=== PATIENT | female | born 1990 | race Caucasian/White ===

== ENCOUNTER 2023-03-21 16:50 | Emergency (ER) | payer OTHER, SELFPAY ==
[2023-03-21] VITALS (15 sets, daily range): BP systolic 99–121; BP diastolic 60–80; PULSE 66–89; RESP 10–24; TEMP 37.5; O2SAT 96–100; BMI 30.6
--- NOTE | 2023-03-21 17:05 | ED.CHESTPAI1 ---
Documented by User: Kassi Benavides MD 03/23/23 18:56 HPI - Chest Pain General Chief Complaint: Chest Pain Stated Complaint: CHEST PAIN Time Seen by Provider: 03/21/23 17:05 Source: patient Mode of arrival: walk-in History of Present Illness HPI narrative: Patient says emergency department complaining of chest pain. Patient states she's had intermittent chest pain since 1 PM. She says she is under a lot of stress as she was served papers by her ex- to take full custody of her kids. Patient denies any shortness of breath. She states she's had panic attacks in the past and this feels kind of like it. She also states she has a history of acid reflex and she took Pepto-Bismol to see if it would help. Patient denies any fever, chills, or cough. She denies any shortness of breath. She denies any lower extremity edema. She denies any history of heart disease or thrombotic embolic disease. She denies any trauma. She denies any cough or upper respiratory infection symptoms. She denies any sore throat or difficulty swallowing. Related Data Home Medications Medication Instructions Recorded Confirmed pantoprazole 40 mg tablet,delayed 40 mg PO DAILY 03/21/23 03/21/23 release zonisamide 25 mg capsule 25 mg PO DAILY 03/21/23 03/21/23 Previous Rx's Medication Instructions Recorded famotidine 20 mg tablet (Pepcid) 20 mg PO Q12H #10 tabs 03/21/23 Allergies Allergy/AdvReac Type Severity Reaction Status Date / Time amoxicillin Allergy Severe Verified 03/21/23 16:58 Penicillins Allergy Severe Verified 03/21/23 16:58 Review of Systems ROS Status of ROS 10 or more systems reviewed and unremarkable except as noted in history and below Exam Narrative Exam Narrative: Nurses notes and vital signs reviewed and patient is not hypoxic. General: Nontoxic, Well-appearing and in no apparent distress. Skin: Warm, dry, no pallor noted. No Rash Head: Normocephalic, atraumatic. Neck: Supple, non-tender. Eye: Pupils are equal, round and EOMI. No scleral icterus. Ears, Nose, Mouth, and Throat: TM clear, no posterior oropharynx erythema or nasal mucosal hypertrophy, uvula is mid-line Oral mucosa is moist Cardiovascular: Regular Rate and Rhythm without murmur, gallop or rub. Respiratory: No accessory muscle use or respiratory distress. Lungs are clear to auscultation, no wheezing, rales or rhonchi Chest Wall: no tenderness Back: No midline thoracic or lumbar vertebral tenderness. No CVA tenderness Musculoskeletal: normal ROM, no calf or popliteal tenderness, no lower extremity edema/swelling GI: Abdomen is soft, non-distended. Normal bowel sounds. No masses appreciated. No tenderness to palpation. No rebound, guarding, or rigidity noted. Neurological: A&O x4. No cranial nerve dysfunction observed. No truncal ataxia. Moves all extremities. Sensation intact. Psychiatric: Cooperative and interactive. anxious Constitutional Vital Signs - 24 hr 03/21/23 16:58 03/21/23 17:00 03/21/23 17:01 Temperature 99.5 F Pulse Rate 89 79 Pulse Rate [Monitor] 87 Respiratory Rate 16 18 22 Blood Pressure 111/72 Blood Pressure [Left Arm] 111/72 Pulse Oximetry 100 99 Oxygen Delivery Method Room Air 03/21/23 17:02 03/21/23 17:02 03/21/23 17:30 Temperature Pulse Rate 83 80 87 Pulse Rate [Monitor] Respiratory Rate 21 20 24 Blood Pressure 111/69 111/69 106/74 Blood Pressure [Left Arm] Pulse Oximetry 98 96 97 Oxygen Delivery Method 03/21/23 18:00 03/21/23 18:00 03/21/23 18:30 Temperature Pulse Rate 80 71 66 Pulse Rate [Monitor] Respiratory Rate 15 13 19 Blood Pressure 120/78 H 120/78 H 121/80 H Blood Pressure [Left Arm] Pulse Oximetry 97 97 97 Oxygen Delivery Method 03/21/23 19:00 03/21/23 19:40 03/21/23 19:50 Temperature Pulse Rate 74 83 Pulse Rate [Monitor] Respiratory Rate 10 L 22 Blood Pressure 99/60 Blood Pressure [Left Arm] Pulse Oximetry 96 Oxygen Delivery Method 03/21/23 19:59 03/21/23 20:00 03/21/23 20:30 Temperature Pulse Rate 74 80 80 Pulse Rate [Monitor] Respiratory Rate 15 17 14 Blood Pressure 119/80 H 108/74 Blood Pressure [Left Arm] Pulse Oximetry 98 96 98 Oxygen Delivery Method 03/21/23 21:00 03/21/23 21:02 03/21/23 21:41 Temperature Pulse Rate 76 Pulse Rate [Monitor] Respiratory Rate 15 Blood Pressure 115/78 116/79 Blood Pressure [Left Arm] Pulse Oximetry 98 Oxygen Delivery Method Room Air Course Vital Signs Vital signs: Vital Signs Temperature 99.5 F 03/21/23 16:58 Pulse Rate 87 03/21/23 16:58 Respiratory Rate 16 03/21/23 16:58 Blood Pressure 111/72 03/21/23 16:58 Pulse Oximetry 100 03/21/23 16:58 Oxygen Delivery Method Room Air 03/21/23 16:58 Temperature 99.5 F 03/21/23 16:58 Pulse Rate 76 03/21/23 21:00 Respiratory Rate 15 03/21/23 21:00 Blood Pressure 116/79 03/21/23 21:02 Pulse Oximetry 98 03/21/23 21:00 Oxygen Delivery Method Room Air 03/21/23 21:41 MDM - Chest Pain MDM Narrative Medical decision making narrative: Labs and x-rays were ordered. Patient was given Atarax. Patient is hemodynamically stable. Patient's symptoms improved. Will be given a prescription for Atarax. Patient is nontoxic, stable for outpatient follow-up and treatment.At this time the patient is without objective evidence of an acute process requiring hospitalization or inpatient management. The patient has remained hemodynamically stable. No additional indication for emergent studies at this time. I answered all questions. Discussed discharge instructions including standard anticipatory guidance and what should prompt a return to the emergency department, including if they get worse are not getting better or develops any new or concerning symptoms. I've given them specific time frame in which to follow-up, and who to follow-up with. The patient demonstrates understanding. Patient is nontoxic and stable for discharge with outpatient follow-up. This note was created with the assistance of a speech recognition program. Although the intention is to generate documents that actually reflects the content of the visit, no guarantees can be provided that every mistake has been identified and corrected by editing. Differential Diagnosis Differential diagnosis: Likely pneumothorax, stable angina, unstable angina pectoris, atypical chest pain, st elevation myocardial infarction, costochondritis and chest pain Lab Data Attestation: I reviewed the patient's lab results. Labs: Lab Results 03/21/23 03/21/23 Range/Units 17:50 19:28 WBC 8.3 (4.0-11.0) 10^3/uL RBC 5.01 (4.20-5.40) 10^6/uL Hgb 14.3 (12.0-16.0) g/dL Hct 41.7 (36.0-48.0) % MCV 83.2 (81.0-99.0) fL MCH 28.5 (26.7-34.0) pg MCHC 34.3 (29.9-35.2) g/dL RDW 12.5 (11.0-15.0) % Plt Count 236 (150-450) 10^3/uL MPV 11.0 (9.5-13.5) fL Neut % (Auto) 84.0 H (43.0-75.0) % Lymph % (Auto) 7.8 L (20.5-60.0) % [place] % (Auto) 6.2 (1.7-12.0) % Eos % (Auto) 1.0 (0.9-7.0) % Baso % (Auto) 0.4 (0.2-2.0) % Neut # (Auto) 7.0 H (1.4-6.5) 10^3/uL Lymph # (Auto) 0.7 L (1.2-3.8) 10^3/uL [place] # (Auto) 0.5 (0.3-0.8) 10^3/uL Eos # (Auto) 0.1 (0.0-0.7) 10^3/uL Baso # (Auto) 0.0 (0.0-0.1) 10^3/uL Abs Immat Gran (auto) 0.05 H (0.00-0.03) 10^3/uL Imm/Tot Granulo (auto) 0.6 H (0.0-0.5) % D-Dimer 1.83 H* (<=0.59) mg/L FEU Sodium 135 L (136-145) mmol/L Potassium 3.5 (3.5-5.1) mmol/L Chloride 103 (98-107) mmol/L Carbon Dioxide 23.4 (21.0-32.0) mmol/L Anion Gap 12.1 BUN 10.0 (7.0-18.0) mg/dL Creatinine 0.83 (0.55-1.02) mg/dL Est GFR ( Amer) >60 (>=60) Est GFR (Non-Af Amer) >60 (>=60) BUN/Creatinine Ratio 12.0 Glucose 111 H (74-106) mg/dL Calcium 8.4 L (8.5-10.1) mg/dL Total Bilirubin 0.8 (0.2-1.0) mg/dL AST 159 H (15-37) U/L ALT 97 H (14-59) U/L Alkaline Phosphatase 124 H (46-116) U/L Troponin I High Sens <4.0 L <4.0 L (4.0-51.3) pg/mL Total Protein 7.3 (6.4-8.2) g/dL Albumin 3.1 L (3.4-5.0) g/dL Globulin 4.2 g/dL Albumin/Globulin Ratio 0.7 ECG Data Attestation: I personally reviewed and interpreted this ECG as follows: Discharge Plan Discharge Chief Complaint: Chest Pain Clinical Impression: Chest pain, Atypical chest pain Patient Disposition: Home, Self-Care Time of Disposition Decision: 18:03 Condition: Good Mode of Transportation: Private Vehicle Prescriptions / Home Meds: New famotidine [Pepcid] 20 mg tablet 20 mg PO Q12H Qty: 10 0RF No Action pantoprazole 40 mg tablet,delayed release (DR/EC) 40 mg PO DAILY zonisamide 25 mg capsule 25 mg PO DAILY Instructions: Chest Pain (ED) Stand Alone Forms: Portal Instructions Referrals: Bret Smith MD [Primary Care Provider] - 1 week Discharge Date/Time: 03/21/23 21:48 Documented by User: Sharifa Bradford MD 03/22/23 04:48 HPI - Chest Pain General Chief Complaint: Chest Pain Stated Complaint: CHEST PAIN Time Seen by Provider: 03/21/23 17:05 Related Data Home Medications Medication Instructions Recorded Confirmed pantoprazole 40 mg tablet,delayed 40 mg PO DAILY 03/21/23 03/21/23 release zonisamide 25 mg capsule 25 mg PO DAILY 03/21/23 03/21/23 Previous Rx's Medication Instructions Recorded famotidine 20 mg tablet (Pepcid) 20 mg PO Q12H #10 tabs 03/21/23 Allergies Allergy/AdvReac Type Severity Reaction Status Date / Time amoxicillin Allergy Severe Verified 03/21/23 16:58 Penicillins Allergy Severe Verified 03/21/23 16:58 Exam Constitutional Vital Signs - 24 hr 03/21/23 16:58 03/21/23 17:00 03/21/23 17:01 Temperature 99.5 F Pulse Rate 89 79 Pulse Rate [Monitor] 87 Respiratory Rate 16 18 22 Blood Pressure 111/72 Blood Pressure [Left Arm] 111/72 Pulse Oximetry 100 99 Oxygen Delivery Method Room Air 03/21/23 17:02 03/21/23 17:02 03/21/23 17:30 Temperature Pulse Rate 83 80 87 Pulse Rate [Monitor] Respiratory Rate 21 20 24 Blood Pressure 111/69 111/69 106/74 Blood Pressure [Left Arm] Pulse Oximetry 98 96 97 Oxygen Delivery Method 03/21/23 18:00 03/21/23 18:00 03/21/23 18:30 Temperature Pulse Rate 80 71 66 Pulse Rate [Monitor] Respiratory Rate 15 13 19 Blood Pressure 120/78 H 120/78 H 121/80 H Blood Pressure [Left Arm] Pulse Oximetry 97 97 97 Oxygen Delivery Method 03/21/23 19:00 03/21/23 19:40 03/21/23 19:50 Temperature Pulse Rate 74 83 Pulse Rate [Monitor] Respiratory Rate 10 L 22 Blood Pressure 99/60 Blood Pressure [Left Arm] Pulse Oximetry 96 Oxygen Delivery Method 03/21/23 19:59 03/21/23 20:00 03/21/23 20:30 Temperature Pulse Rate 74 80 80 Pulse Rate [Monitor] Respiratory Rate 15 17 14 Blood Pressure 119/80 H 108/74 Blood Pressure [Left Arm] Pulse Oximetry 98 96 98 Oxygen Delivery Method 03/21/23 21:00 03/21/23 21:02 03/21/23 21:41 Temperature Pulse Rate 76 Pulse Rate [Monitor] Respiratory Rate 15 Blood Pressure 115/78 116/79 Blood Pressure [Left Arm] Pulse Oximetry 98 Oxygen Delivery Method Room Air Course Vital Signs Vital signs: Vital Signs Temperature 99.5 F 03/21/23 16:58 Pulse Rate 87 03/21/23 16:58 Respiratory Rate 16 03/21/23 16:58 Blood Pressure 111/72 03/21/23 16:58 Pulse Oximetry 100 03/21/23 16:58 Oxygen Delivery Method Room Air 03/21/23 16:58 Temperature 99.5 F 03/21/23 16:58 Pulse Rate 76 03/21/23 21:00 Respiratory Rate 15 03/21/23 21:00 Blood Pressure 116/79 03/21/23 21:02 Pulse Oximetry 98 03/21/23 21:00 Oxygen Delivery Method Room Air 03/21/23 21:41 MDM - Chest Pain MDM Narrative Medical decision making narrative: Labs and x-rays were ordered. Patient was given Atarax. Patient is hemodynamically stable. Patient's symptoms improved. Will be given a prescription for Atarax. Patient is nontoxic, stable for outpatient follow-up and treatment.At this time the patient is without objective evidence of an acute process requiring hospitalization or inpatient management. The patient has remained hemodynamically stable. No additional indication for emergent studies at this time. I answered all questions. Discussed discharge instructions including standard anticipatory guidance and what should prompt a return to the emergency department, including if they get worse are not getting better or develops any new or concerning symptoms. I've given them specific time frame in which to follow-up, and who to follow-up with. The patient demonstrates understanding. Patient is nontoxic and stable for discharge with outpatient follow-up. This note was created with the assistance of a speech recognition program. Although the intention is to generate documents that actually reflects the content of the visit, no guarantees can be provided that every mistake has been identified and corrected by editing. Dr Bradford the patient blood workup and repeated troponin twice significant pathology CBC and chemistry in addition to a chest x-ray and CT angiogram showed no acute pathology Right now the patient pain is more atypical could be secondary to GERD as well she was instructed about using Pepcid at home and prescribed Pepcid and she was feeling much better after she was seen in the area with Atarax,but the patient still with encephalopathy primary care doctor for further evaluation of her chest pain The patient is to followup with primary care physician in next 2-3 days or to return to the emergency department should any of the signs or symptoms worsen or new symptoms develop. The patient agrees with the following Diagnosis and Treatment plan and the patient will be discharged home. Lab Data Labs: Lab Results 03/21/23 03/21/23 Range/Units 17:50 19:28 WBC 8.3 (4.0-11.0) 10^3/uL RBC 5.01 (4.20-5.40) 10^6/uL Hgb 14.3 (12.0-16.0) g/dL Hct 41.7 (36.0-48.0) % MCV 83.2 (81.0-99.0) fL MCH 28.5 (26.7-34.0) pg MCHC 34.3 (29.9-35.2) g/dL RDW 12.5 (11.0-15.0) % Plt Count 236 (150-450) 10^3/uL MPV 11.0 (9.5-13.5) fL Neut % (Auto) 84.0 H (43.0-75.0) % Lymph % (Auto) 7.8 L (20.5-60.0) % [place] % (Auto) 6.2 (1.7-12.0) % Eos % (Auto) 1.0 (0.9-7.0) % Baso % (Auto) 0.4 (0.2-2.0) % Neut # (Auto) 7.0 H (1.4-6.5) 10^3/uL Lymph # (Auto) 0.7 L (1.2-3.8) 10^3/uL [place] # (Auto) 0.5 (0.3-0.8) 10^3/uL Eos # (Auto) 0.1 (0.0-0.7) 10^3/uL Baso # (Auto) 0.0 (0.0-0.1) 10^3/uL Abs Immat Gran (auto) 0.05 H (0.00-0.03) 10^3/uL Imm/Tot Granulo (auto) 0.6 H (0.0-0.5) % D-Dimer 1.83 H* (<=0.59) mg/L FEU Sodium 135 L (136-145) mmol/L Potassium 3.5 (3.5-5.1) mmol/L Chloride 103 (98-107) mmol/L Carbon Dioxide 23.4 (21.0-32.0) mmol/L Anion Gap 12.1 BUN 10.0 (7.0-18.0) mg/dL Creatinine 0.83 (0.55-1.02) mg/dL Est GFR ( Amer) >60 (>=60) Est GFR (Non-Af Amer) >60 (>=60) BUN/Creatinine Ratio 12.0 Glucose 111 H (74-106) mg/dL Calcium 8.4 L (8.5-10.1) mg/dL Total Bilirubin 0.8 (0.2-1.0) mg/dL AST 159 H (15-37) U/L ALT 97 H (14-59) U/L Alkaline Phosphatase 124 H (46-116) U/L Troponin I High Sens <4.0 L <4.0 L (4.0-51.3) pg/mL Total Protein 7.3 (6.4-8.2) g/dL Albumin 3.1 L (3.4-5.0) g/dL Globulin 4.2 g/dL Albumin/Globulin Ratio 0.7 Discharge Plan Discharge Chief Complaint: Chest Pain Clinical Impression: Chest pain, Atypical chest pain Patient Disposition: Home, Self-Care Time of Disposition Decision: 18:03 Condition: Good Mode of Transportation: Private Vehicle Prescriptions / Home Meds: New famotidine [Pepcid] 20 mg tablet 20 mg PO Q12H Qty: 10 0RF No Action pantoprazole 40 mg tablet,delayed release (DR/EC) 40 mg PO DAILY zonisamide 25 mg capsule 25 mg PO DAILY Instructions: Chest Pain (ED) Stand Alone Forms: Portal Instructions Referrals: Bret Smith MD [Primary Care Provider] - 1 week Discharge Date/Time: 03/21/23 21:48
--- NOTE | 2023-03-21 17:37 | ECG_ITS ---
The [facility] Test Date: 2023-03-21 Pat Name: CLIFTON BOSS Department: Room: - Gender: Female Detailer: : 1990 Requested By: JOYCE BRAND Order Number: [id number] Reading MD: MIGNON SAUCEDO Measurements Intervals [place] Rate: 79 P: 38 NE: 156 QRS: 39 QRSD: 86 T: 40 QT: 344 QTc: 379 Interpretive Statements 1100 Sinus rhythm 9110 normal ECG No previous ECG available for comparison Electronically Signed On 03-23-2023 6:21:35 EDT by MIGNON SAUCEDO
--- NOTE | 2023-03-21 17:37 | XR_ITS ---
[place] [id number] Patient Name: CLIFTON BOSS MRN: [id number] date: 1990 Sex: F Assigned Patient Location: ED.MAIN Current Patient Location: ER Accession/Order Number: [id number] Exam Date: 03/21/2023 18:00 Report Date: 03/21/2023 18:17 At the request of: HAMMAD BRENNAN Procedure: XR chest 1V EXAM: XR chest 1V HISTORY: cp COMPARISON: None. TECHNIQUE: Frontal view of the chest. FINDINGS: No focal consolidations or pleural effusions. Cardiomediastinal silhouette is unremarkable. Visualized osseous structures are unremarkable. IMPRESSION: No acute disease. Electronically authenticated by: REYNA ODOM Date: 03/21/2023 18:17
[2023-03-21 18:02] LABS: Basophils Percent Auto 0.4 % (0.2-2.0); Eosinophils Absolute Auto 0.1 10^3/uL (0.0-0.7); Hematocrit 41.7 % (36.0-48.0); Hemoglobin 14.3 g/dL (12.0-16.0); Immature Granulocytes Abs Auto 0.05 10^3/uL (0.00-0.03); Immature Granulocytes Pct Auto 0.6 % (0.0-0.5); Lymphocytes Absolute Auto 0.7 10^3/uL (1.2-3.8); Lymphocytes Percent Auto 7.8 % (20.5-60.0); Mean Corpuscular HGB Conc 34.3 g/dL (29.9-35.2); Mean Corpuscular Hemoglobin 28.5 pg (26.7-34.0); Mean Corpuscular Volume 83.2 fL (81.0-99.0); Monocytes Absolute Auto 0.5 10^3/uL (0.3-0.8); Monocytes Percent Auto 6.2 % (1.7-12.0); Platelet Count 236 10^3/uL (150-450); Red Blood Count 5.01 10^6/uL (4.20-5.40); Red Cell Distribution Width 12.5 % (11.0-15.0); White Blood Count 8.3 10^3/uL (4.0-11.0)
[2023-03-21] MEDS: PANTOPRAZOLE SODIUM 40 MG VIAL IV (18:11)
[2023-03-21 18:20] LABS: Alanine Aminotransferase 97 U/L (14-59); Albumin Globulin Ratio 0.7; Albumin Level 3.1 g/dL (3.4-5.0); Alkaline Phosphatase 124 U/L (46-116); Anion Gap 12.1; Aspartate Amino Transferase 159 U/L (15-37); Bilirubin Total 0.8 mg/dL (0.2-1.0); Calcium 8.4 mg/dL (8.5-10.1); Carbon Dioxide 23.4 mmol/L (21.0-32.0); Chloride 103 mmol/L (98-107); Estimated GFR (African America >60 (>=60); Estimated GFR (Non-African Ame >60 (>=60); Globulin 4.2 g/dL; Glucose 111 mg/dL (74-106); Potassium 3.5 mmol/L (3.5-5.1); Sodium 135 mmol/L (136-145); Total Protein 7.3 g/dL (6.4-8.2)
[2023-03-21 18:21] LABS: D Dimer 1.83 mg/L FEU (<=0.59)
--- NOTE | 2023-03-21 18:25 | CT_ITS ---
[address] [address] Patient Name: CLIFTON BOSS MRN: [id number] date: 1990 Sex: F Assigned Patient Location: ER Current Patient Location: ER Accession/Order Number: [id number] Exam Date: 03/21/2023 19:25 Report Date: 03/21/2023 20:42 At the request of: HAMMAD BRENNAN Procedure: CT angio chest CT angio chest, 03/21/2023 7:25 PM EDT INDICATION: chest pain COMPARISON: None. TECHNIQUE: Iodinated contrast was administered intravenously by rapid injection, with further multislice axial sections acquired in the pulmonary arterial phase from the thoracic inlet to the upper abdomen. Coronal maximal intensity projection images were created for comprehensive analysis and diagnosis of the regional circulation. Dose reduction techniques were achieved by using automated exposure control and/or adjustment of mA and/or kV according to patient size and/or use of iterative reconstruction technique. FINDINGS: LUNGS/PLEURA: No visible pulmonary disease or effusion. VASCULATURE: No visible pulmonary arterial thrombus or attenuation. PARMINDER: No mass or adenopathy. MEDIASTINUM: No mass or adenopathy. CARDIAC: Normal. No enlargement, pericardial thickening, or significant calcification. AORTA: Normal. No aneurysm or dissection. CHEST WALL: No mass or axillary adenopathy LIMITED ABD: There is a small hiatal hernia. Prior cholecystectomy. BONES: Normal. No bony lesion or fracture. OTHER: Negative. IMPRESSION: No acute intrathoracic abnormality is identified. No evidence for pulmonary embolism. Electronically authenticated by: Quinton MORE Date: 03/21/2023 20:42
--- NOTE | 2023-03-21 18:31 | PC.NURSE ---
Lab called and notified of Critical D-Dimer of 1.83. Dr. Benavides notified
[2023-03-21 18:35] LABS: Troponin I High Sensitivity <4.0 pg/mL (4.0-51.3)
--- NOTE | 2023-03-21 19:34 | PC.NURSE ---
patient complaints of non radiating middle chest pain. physician aware. lab at bedside to draw second toponin
[2023-03-21 19:56] LABS: Troponin I High Sensitivity <4.0 pg/mL (4.0-51.3)
== END 2023-03-21 21:48 | disposition home or self-care (01) ==
PROVIDERS: Emergency Medicine; Emergency Provider Emergency Medicine; PCP Family Medicine
DX: R07.89 Other chest pain (principal); Z79.899 Other long term (current) drug therapy
CPT/HCPCS: 36415; 71045; 71275; 80053; 84484; 85025; 85378; 93005; 96374; 99285; Q9967

== ENCOUNTER 2023-12-09 09:06 | Outpatient (OUT) | payer OTHER, SELFPAY ==
--- NOTE | 2023-12-09 09:19 | XR_ITS ---
The [address] [address] Patient Name: CLIFTON BOSS MRN: [id number] date: 1990 Sex: F Assigned Patient Location: [facility] Current Patient Location: [facility] Accession/Order Number: [id number] Exam Date: 12/09/2023 09:13 Report Date: 12/09/2023 10:34 At the request of: JOYCE BRAND Procedure: XR cervical spine 2-3V EXAMINATION: XR cervical spine 2-3V HISTORY: Chronic Neck Pain M54.2 COMPARISON: No relevant comparison available. FINDINGS: BONES: Normal alignment with no acute fracture or spondylolisthesis. Fusion C3-C5 DISC SPACES: Normal. No significant disc height narrowing, subluxation, or endplate abnormality. PARASPINOUS: Negative. No paraspinous abnormality is seen. OTHER: Negative. XR/XR cervical spine 2-3V IMPRESSION: C3 C4 C5 fusion No acute abnormality Electronically authenticated by: ARMAAN PRECIADO Date: 12/09/2023 10:34
== END 2023-12-09 09:07 | disposition home or self-care (01) ==
LOC: RAD 09:07
PROVIDERS: PCP Family Medicine; Visit Provider Family Medicine
DX: M54.2 Cervicalgia (principal); G89.29 Other chronic pain
CPT/HCPCS: 72040

== ENCOUNTER 2024-04-13 08:16 | Outpatient (OUT) | payer OTHER, SELFPAY ==
--- NOTE | 2024-04-13 08:23 | FL_ITS ---
[address] [address] Patient Name: CLIFTON BOSS MRN: [id number] date: 1990 Sex: F Assigned Patient Location: [place] Current Patient Location: [place] Accession/Order Number: [id number] Exam Date: 04/13/2024 08:30 Report Date: 04/13/2024 09:34 At the request of: JOYCE BRAND Procedure: FL cineradiography PROCEDURE: FL upper GI w air, FL cineradiography COMPARISON: None HISTORY: Gastroesophageal Reflux Disease Without Esophagitis K21.9 TECHNIQUE: An air contrast upper gastrointestinal series was performed in the usual manner. Standard level fluoroscopic mode of operation utilized. FINDINGS: ESOPHAGUS: Tiny, sliding hiatal hernia. No visible obstruction, dilatation, reflux or hernia STOMACH: No obstruction, mass, or ulceration. Normal motility. DUODENUM:No ulceration or diverticulum. OTHER: Negative. FL/FL cineradiography IMPRESSION: 1. No appreciable gastroesophageal reflux during the study. 2. Tiny sliding hiatal. 3. No ulceration, gastritis, or suspicious findings. Electronically authenticated by: KAITLYNN HARRIS Date: 04/13/2024 09:34
--- NOTE | 2024-04-13 08:23 | FL_ITS ---
[address] [address] Patient Name: CLIFTON BOSS MRN: [id number] date: 1990 Sex: F Assigned Patient Location: [place] Current Patient Location: [place] Accession/Order Number: [id number] Exam Date: 04/13/2024 08:30 Report Date: 04/13/2024 09:34 At the request of: JOYCE BRAND Procedure: FL upper GI w air PROCEDURE: FL upper GI w air, FL cineradiography COMPARISON: None HISTORY: Gastroesophageal Reflux Disease Without Esophagitis K21.9 TECHNIQUE: An air contrast upper gastrointestinal series was performed in the usual manner. Standard level fluoroscopic mode of operation utilized. FINDINGS: ESOPHAGUS: Tiny, sliding hiatal hernia. No visible obstruction, dilatation, reflux or hernia STOMACH: No obstruction, mass, or ulceration. Normal motility. DUODENUM:No ulceration or diverticulum. OTHER: Negative. FL/FL upper GI w air IMPRESSION: 1. No appreciable gastroesophageal reflux during the study. 2. Tiny sliding hiatal. 3. No ulceration, gastritis, or suspicious findings. Electronically authenticated by: KAITLYNN HARRIS Date: 04/13/2024 09:34
--- OUTSIDE RECORDS SUMMARY | 2024-04-13 08:24 | XMS_ITS ---
Patient Summarization (C-CDA 2.1 CCD) Created on: April 13, 2024 JELANI BOSSJOHN Dar : 1990 Sex: Female Author Organization Sample organization Care Team Providers Care Preparation Plant Supervisor Name Role Phone Andrew Gage NP-C Admitting Unavaila Andrew Haji NP-C Attending Unavaila ble NADERER, DR JOYCE Arias Admitting Unavailable NADERER, DR JOYCE Arias Attending Unavailable NADERER, DR JOYCE Arias Primary Care Unavailable NADERER, DR JOYCE Arias Consulting Unavailable NADERER, DR JOYCE Arias Admitting Unavailable NADERER, DR JOYCE Arias Attending Unavailable NADERER, DR JOYCE Arias Primary Care Unavailable NADERER, DR JOYCE Arias Consulting Unavailable NADERER, JOYCE Attending Unavailable NADERER, JOYCE Attending Unavailable NADERER, JOYCE Attending Unavailable NADERER, JOYCE Attending Unavailable Allergies Allergy Classification Reported Allergen(s) Allergy Type Date of Onset Reaction(s) Facility (1 source) Amoxicillin Drug Allergy [facility] (1 source) Penicillin Drug Allergy [facility] Encounters Encounter Date Encounter Type Care Provider Facility Start: 03-03-2024 End: 03-03-2024 ambulatory JOYCE BRAND Not Available Start: 12-09-2023 End: 12-09-2023 ambulatory JOYCE BRAND Not Available Start: 11-09-2023 End: 11-09-2023 ambulatory JOYCE BRAND Not Available Start: 09-25-2023 End: 09-25-2023 ambulatory JOYCE BRAND Not Available Start: 09-13-2021 End: 09-13-[address] JOYCE BRAND Facility:[facility] Start: 09-02-2021 End: 09-02-[address] JOYCE BRAND Facility:[facility] Start: 01-19-2019 End: 01-19-2019 Patient encounter procedure Andrew Gage Facility:[facility] Payers Date Payer Category Payer Self-pay 2019 Unknown [id number] 1990 Unknown [id number] 2.16.84 [id number] 1990 Unknown [id number] 2.16.84 [id number] 1990 Unknown [id number] 2.16.84 [id number] 1990 Unknown [id number] 2.16.84 [id number] 1989 Unknown [id number] 2.16.84 [id number] 1989 Unknown [id number] 1960 Unknown [id number] Unknown [id number] 2.16.84 [id number] Problems Active Problems Problem Classification Problem Date Documented Da te Episodic/Chronic Unclassified (3 sources) CONTACT W/AND (SUSP) EXPOS COVID-19; Translations: [CONTACT W/AND (SUSP) EXPOS COVID-19] Onset: 09-18-2021 Viral infection (1 source) COVID-19; Translations: [COVID-19] Onset: 09-11-2021 Past or Other Problems Problem Classification Problem Date Documented Da te Episodic/Chronic Unclassified (1 source) CONTACT W/AND (SUSP) EXPOS COVID-19; Translations: [CONTACT W/AND (SUSP) EXPOS COVID-19] Onset: 09-13-2021 Results Test Name Value Interpretation Reference Range Facil ity Covid-19 PCR (CVDTB)on SARS-CoV-2 (COVID-19) RNA ALEX+probe Ql (Unsp spec) Not detected Normal NOT DETECTED [facility] Comment on above: Result Comment: This test is not yet ivanna roved or cleared by the [place] FDA. When there are no FDA-approved or cleared tests available, and other criteria are met, FDA can make tests available under an emergency access mechanism called an Emergency Use Authorization (EUA). The EUA for this test is supported by the Mold Insert Changer of Health and Human Service's (HHS's) declaration that circumstances exist to justify the emergency use of in vitro diagnostics for the detection and/or diagnosis of the virus that causes COVID-19. This EUA will remain in effect (meaning this test can be used) for the duration of the COVID-19 declaration justifying emergency of IVDs, unless it is terminated or revoked by FDA (after which the test may no longer be used). When diagnostic testing is negative, the possibility of a false negative should be considered in the context of a patient's recent exposures and the presence of clinical signs and symptoms consistent with SARS-CoV-2. Performed By: #### C VDTB #### [facility] [address] [place] [address] Dr. Brian Horowitz Covid-19 PCR ([facility])on 08-13 SARS-CoV-2 (COVID-19) RNA ALEX+probe Ql (Unsp spec) Detected Critically abnormal NOT DETECTED [facility] Comment on above: Result Comment: This test is not yet ivanna roved or cleared by the [place] FDA. When there are no FDA-approved or cleared tests available, and other criteria are met, FDA can make tests available under an emergency access mechanism called an Emergency Use Authorization (EUA). The EUA for this test is supported by the Mold Insert Changer of Health and Human Service's (HHS's) declaration that circumstances exist to justify the emergency use of in vitro diagnostics for the detection and/or diagnosis of the virus that causes COVID-19. This EUA will remain in effect (meaning this test can be used) for the duration of the COVID-19 declaration justifying emergency of IVDs, unless it is terminated or revoked by FDA (after which the test may no longer be used). Performed By: #### C VDTB #### [facility] [address] [place] [address] Dr. Brian Horowitz Urine Cultureon 01-19-2019 Bacteria identified Cx [facility] ([facility] Reason for Exam Urinary frequency Urine ORGANISM: Escherichia coli (O:ESCCOL) [place] Count 75,000 Aerobic CARL Charge (Neg) ----- SUSCEPTIBILITY ---- ORGANISM: O:ESCCOL ANTIBIOTIC INTERPRETATION CARL Amikacin S <16 Amoxacillin/K Clavulanate S <8/4 Ampicillin S <8 Ampicillin/Sulbactam S <8/4 Aztreonam S <8 Cefazolin S <8 Cefepime S <8 Cefotetan S <16 Ceftazidime S <1 Ceftriaxone S <8 Cefuroxime S 8 Ciprofloxacin S <1 Ertapenem S <2 Gentamicin S <4 Levofloxacin S <2 Meropenem S <4 Nitrofurantoin S <32 Piperacillin/Tazobac boyle S <16 Tetracycline S <4 Tobramycin S <4 Trimethoprim/Sulfame thoxazole S <2/38 S = SUSCEPTIBLE I = INTERMEDIATE R = RESISTANT BLANK = DATA NOT AVAILABLE, OR DRUG NOT ADVISABLE OR TESTED R* = RESISTANCE DUE TO EXTENDED SPECTRUM BETA-LACTAMASES ESBL = EXTENDED SPECTRUM BETA-LACTAMASE TFG = THYMIDINE-DEPENDENT STRAIN SAJI = BETA-LACTAMASE POSITIVE IB = INDUCIBLE BETA-LACTAMASE. APPEARS IN PLACE OF 'S' WITH SPECIES KNOWN TO POSSESS INDUCIBLE BETA-LACTAMASES. POTENTIALLY THEY MAY BECOME RESISTANT TO ALL B-LACTAM DRUGS. PERFORMED BY: [place] [address] PATHOLOGIST [employer] ENOCH KENDALL M.D. [facility] Comment on above: Performed By: #### CUU #### [address] Summary Purpose Family History No Family History Records FoundNo Family History Records FoundNo Family History Records Found Advance Directives No Advanced Directives Records FoundNo Advanced Directives Records FoundNo Advanced Directives Records Found Additional Source Comments INFORMATION SOURCE (unrecogn ized section and content) DATE CREATED AUTHOR 01/23/2019 [facility] DATE CREATED AUTHOR AUTHOR'S ORGANIZ ATION 09/20/2021 [facility] DATE CREATED AUTHOR AUTHOR'S ORGANIZ ATION 03/05/2024 [facility] FOR RECORDS PERTAINING TO PATIENTS WHO ARE OR HAVE BEEN ENROLLED IN A CHEMICAL DEPENDENCY/SUBSTANCEABUSE PROGRAM, SOME INFORMATION MAY BE OMITTED. This clinical summary was aggregated from multiple sources. Caution should be exercised in using it in the provision of clinical care. This summary normalizes information from multiple sources, and as a consequence, information in this document may materially change the coding, format and clinical context of patient data. In addition, data may be omitted in some cases. CLINICAL DECISIONS SHOULD BE BASED ON THE PRIMARY CLINICAL RECORDS. [facility]. provides no warranty or guarantee of the accuracy or completeness of information in this document.
== END 2024-04-13 08:17 | disposition home or self-care (01) ==
LOC: FL 08:16
PROVIDERS: PCP Family Medicine; Visit Provider Family Medicine
DX: K21.9 Gastro-esophageal reflux disease without esophagitis (principal)
CPT/HCPCS: 74246; 76120